=== PATIENT | male | born 1960 | race Caucasian/White ===

== ENCOUNTER 2017-09-17 11:14 | Emergency (ER) | payer BC ==
[~2017-09-17] VITALS: Ht 185.4 cm; Wt 115.7 kg
[2017-09-17 11:52] VITALS: BP 00/000
[2017-09-17] MEDS ORDERED: NAPROXEN500 MG PO (12:00)
[2017-09-17] MEDS ORDERED: PERCOCET 5/31 TABLET PO (12:00)
== END 2017-09-17 12:37 | disposition home or self-care (01) ==
LOC: TRA 11:14
PROC: 2W3DX1Z Immobilization of Left Lower Arm using Splint (ICD-10-PCS; principal; 2017-09-17)
DX: S52.592A Other fractures of lower end of left radius, initial encounter for closed fracture (principal); W11.XXXA Fall on and from ladder, initial encounter; Z87.891 Personal history of nicotine dependence
CPT/HCPCS: 73110; 99281; 99284